=== PATIENT | male | born 1960 | race Caucasian/White ===

== ENCOUNTER 2016-10-07 05:34 | Inpatient (IN) ==
--- NOTE | 2016-10-01 15:24 | EKG Report ---
Stationary ECG Study [facility] Test Date: 10/01/2016 3:20:38 PM Pat Name: JULIO DIAZ Department: Room: Gender: M Asset Management Analyst: JACEY VENTURA : 1960 Requested by: Major Germain Order Number: [id number] Reading MD: IGOR ANDERSON Intervals [place] Rate: 58 P: 54 TN: 222 QRS: -31 QRSD: 83 T: -9 QT: 390 QTc: 387 Interpretive Statements SINUS RHYTHM WITH PROLONGED TN INTERVAL LEFT AXIS DEVIATION Electronically Signed On 10-01-16 17:09:17 CDT by IGOR ANDERSON [email or web address]
[2016-10-01 15:40] LABS: Basophils % 0.5 % (0.0-0.8); Eosinophils # 0.1 10*3/uL (0.0-0.87); Eosinophils % 1.1 % (0.00-10.9); Hematocrit 36.9 VOL% (42.0-52.0); Hemoglobin 12.7 GM/DL (14.0-18.0); Immature Granulocytes % 0.4 %; Immature Granulocytes Absolute 0.02 #; Lymphocytes # 1.6 10*3/uL (1.4-4.0); Lymphocytes % 28.3 % (21.2-54.2); Mean Corpuscular HGB Conc 34.4 GM/DL (32-36); Mean Corpuscular Hemoglobin 31 PG (27-34); Mean Corpuscular Volume 91.3 FL (87-102); Mean Platelet Volume 8.5 FL (9.6-12.0); Monocytes # 0.6 10*3/uL (0.11-0.8); Monocytes % 10.6 % (1.7-12.7); Neutrophils # 3.2 10*3/uL (1.4-7.4); Neutrophils % 59.1 % (38.7-73.9); Platelet Count 216 T/CUMM (130-400); Red Blood Count 4.04 MC/CUMM (3.8-5.5); White Blood Count 5.5 T/CUMM (4-12)
[2016-10-01 15:53] LABS: PT Patient Result 10.5 SECS; Partial Thromboplastin Time 27.7 SECS (0-40)
[2016-10-01 16:07] LABS: Apearance,Urine CLEAR (Clear); Bilirubin,Urine Negative (Negative); Blood, Urine Negative (Negative); Glucose,Urine (UA) Negative (Negative); Ketones,Urine Negative (Negative); Mucus,Urine Occasional /LPF (Occasional); Nitrite,Urine Negative (Negative); Protein,Urine Negative; RBC,Urine <1 /HPF (0-4); Urine Color Yellow (Yellow); Urine Specific Gravity 1.017 (1.001-1.035); Urine Urobilinogen < 2.0 EU/DL (0.2-1.0); WBC,Urine <1 /HPF (0-6)
--- NOTE | 2016-10-01 16:17 | XRay Report ---
XR chest 2V Indication: Preop respiratory evaluation. Chest 2 views: Comparison 04/26/2014. The heart size and mediastinal contour are normal. The lungs and pleural spaces are clear. Bones are unremarkable. Impression: Negative chest. PROCEDURE INTERPRETED AT [facility] DEPARTMENT OF RADIOLOGY Final Report Signed by: Jt Stevenson M.D.
[2016-10-01 16:21] LABS: Albumin 3.7 G/DL (3.4-5.0); Bilirubin,Total 0.4 MG/DL (0.2-1.0); Calcium 8.7 MG/DL (8.5-10.1); Osmolality,Calculated 283.3 MOS/KG (273-304); Total Protein 6.9 G/DL (6.4-8.3)
[2016-10-07] MEDS ORDERED: VANCOMYCIN 1,000 MG VIAL ONE (05:56)
[2016-10-07] MEDS ORDERED: SODIUM CHLORIDE 0.9% 100 ML IV ONE ×2 (05:58→09:03)
[2016-10-07] MEDS ORDERED: ceFAZolin 1,000 MG VIAL ONE (05:58)
[2016-10-07] MEDS ORDERED: VANCOMYCIN INJ 1,000 MG in SODIUM CHLORIDE 0.9% 250 ML IV ONE (06:00)
[2016-10-07] MEDS ORDERED: FAMOTIDINE 20 MG TABLET PO ONE (06:16)
[2016-10-07] MEDS ORDERED: LORazepam 1 MG TABLET PO ONE (06:16)
[2016-10-07] MEDS ORDERED: LORazepam 1 MG TABLET ONE (06:19)
[2016-10-07] MEDS ORDERED: FAMOTIDINE 20 MG TABLET ONE (06:20)
[2016-10-07] MEDS: LACTATED RINGERS 1,000 ML IV SCH ×5 (06:28→20:10)
[2016-10-07] MEDS ORDERED: TRANEXAMIC ACID 1,000 MG/10 ML VIAL IV ONE (06:39)
[2016-10-07] MEDS ORDERED: NEOMYCIN/POLYMYXIN/BACITRACIN OINT 28.4 GM TUBE TOP ONE (06:40)
--- NOTE | 2016-10-07 06:59 | History and Physical Update ---
History and Physical Update - History and Physical H&P was reviewed, the patient examined and there: are no changes in the patients condition since last H&P was completed.
[2016-10-07] MEDS ORDERED: PROPOFOL 500 MG/50 ML BOTTLE IV ONE (07:02)
[2016-10-07] MEDS ORDERED: PHENYLEPHRINE 1 MG/10 ML SYRINGE IV ONE (07:02)
[2016-10-07] MEDS ORDERED: MORPHINE 2 MG/1 ML SYRINGE IV PRN ×2 (07:28)
[2016-10-07] MEDS ORDERED: diphenhydrAMINE CAP 25 MG CAPSULE PO PRN (07:28)
[2016-10-07] MEDS ORDERED: ONDANSETRON 4 MG/2 ML VIAL IV PRN (07:28)
[2016-10-07] MEDS ORDERED: ZALEPLON 5 MG CAPSULE PO PRN (07:28)
[2016-10-07] MEDS ORDERED: oxyCODONE IR 5 MG TABLET PO PRN (07:28)
--- NOTE | 2016-10-07 09:01 | Operative Note ---
Procedure: DIAGNOSIS: Left hip primary osteoarthritis PROCEDURE: Left total hip arthroplasty (CPT#03878) SURGEON: Zia ASST: Basilio Giraldo ANESTHESIA: Spinal PROCEDURE and FINDINGS: After adequate anesthesia was induced, the patient was placed in lateral decubitus position. Left lower extremities prepped and draped in usual sterile fashion. Posteriolateral approach to the hip was made. Skin, subcutaneous tissue and deep fascia was incised longitudinally. Gluteus emely muscle belly was split in line with its fibers. Piriformis, external rotators and capsule were taken down as a single layer as an inverted L shaped capsulotomy. Hip was dislocated. Templated femoral neck cut was made. Jolly retractors were placed superiorly and posteriorly. Acetabulum was prepared by sequentially reaming. A 56 mm Continuum acetabular shell was press-fit with excellent stability. 1 6.5 millimeter screw was placed with an excellent bite. 32 mm elevated longevity liner was placed with a dome hole plug. Upon removal of the posterior jolly, the trina broke within the posterior wall. A brief attempt was made to retrieve the time. However, it it broken deep within the posterior wall. I was concerned that removal would destabilize the posterior wall and fit of the acetabular component. Femur was prepared sequentially with the box osteotome, canal finder and sequential broaches to 14. Components were trialed. A size 14 Versys fiber metal tapered stem was press-fit. A 32+3.5 mm head was placed. The component was stable posteriorly and anteriorly. Capsule was repaired with #5 Tycron. Deep fascia was closed with 0 Vicryl wtkyck-bu-expdr suture. Subcutaneous tissue was closed deep with a 2-0 Vicryl runner and superficially with 3-0 interrupted buried sutures. Skin was closed with guillermo. Bacitracin and a sterile occlusive dressing was applied. Surgeon / Physician: Major Lizarraga Jr. Results - Labs CBC & BMP: 10/01/16 15:33 10/01/16 15:33 Discharge Plan - Discharge Medications No Action Simvastatin [Zocor] 10 mg PO BEDTIME Losartan [Cozaar] 100 mg PO DAILY Colchicine [Colcrys] 0.6 mg PO DAILY Hydrocodone/Acetaminophen [[place] 10-325 Tablet] 1 each PO BID PRN PRN Reason: Pain Meloxicam 15 mg PO DAILY - Follow Up or Referral - Forms/Instructions
[2016-10-07] MEDS ORDERED: LACTATED RINGERS 1,000 ML IV ONE (09:03)
[2016-10-07] MEDS ORDERED: MIDAZOLAM 2 MG/2 ML VIAL ONE (09:03)
--- NOTE | 2016-10-07 09:07 | Anesthesia Post-Op ---
Anesthesia Post OP - Post Ansesthetic Evaluation Patient seen in post op: Yes Resp: within normal limits CV: within normal limits Mental: within normal limits Temp: within normal limits Owix-Tj-Lmzwskfug: within normal limits Nausea and Vomiting: within normal limits Pain: within normal limits
[2016-10-07 09:14] LABS: Apearance,Urine Clear (Clear); Bilirubin,Urine Negative (Negative); Blood, Urine NEGATIVE (Negative); Glucose,Urine (UA) Negative (Negative); Ketones,Urine Negative (Negative); Mucus,Urine Occasional /LPF (Occasional); Nitrite,Urine Negative (Negative); Protein,Urine Negative; RBC,Urine 2 /HPF (0-4); Urine Color Straw (Yellow); Urine Specific Gravity 1.015 (1.001-1.035); WBC,Urine <1 /HPF (0-6)
[2016-10-07 09:15] LABS: Urine Urobilinogen 0.2 EU/DL (0.2-1.0)
[2016-10-07] MEDS: ACETAMINOPHEN 500 MG TABLET PO SCH ×3 (10:27→22:07)
[2016-10-07] MEDS: KETOROLAC 30 MG/1 ML VIAL IV SCH ×3 (10:32→22:09)
--- NOTE | 2016-10-07 11:46 | XRay Report ---
History: Postop left hip replacement Date: 10/07/2016 Study: Left hip single view Comparison exam: No previous A single postoperative view of the left hip is submitted. The patient is immediately postop left hip replacement. The left hip prosthesis appears well conjugated in this single view. There is no radiographic evidence of postsurgical complication. Surgical clips are noted over the soft tissues lateral to the hip. There is some postsurgical soft tissue emphysema. Impression: Postop left hip replacement as discussed above PROCEDURE INTERPRETED AT [facility] DEPARTMENT OF RADIOLOGY Final Report Signed by: Dr. Luisa Booth
[2016-10-07] MEDS: LOSARTAN 50 MG TABLET PO SCH (13:50)
[2016-10-07] MEDS ORDERED: MORPHINE 2 MG/1 ML SYRINGE IV ONE (14:29)
--- NOTE | 2016-10-07 14:33 | Orthopedic Progress Note ---
Orthopedics - Subjective Interval history: Complaining of pain. NV ok. Dressing dry. Morphine bolus otherwise continue with orders. Exam - Constitutional Vitals: Period Temp Pulse Resp BP Sys/Hernandez Pulse Ox Last 24 Hr 96.8 F-98.4 F 56-75 16-18 100-159/54-103 99-100 Results - Labs CBC & BMP: 10/01/16 15:33 10/01/16 15:33
[2016-10-07] MEDS: COLCHICINE 0.6 MG TABLET PO SCH (14:59)
[2016-10-07] MEDS: DOCUSATE SODIUM 100 MG CAPSULE PO SCH ×2 (15:03→22:12)
[2016-10-07] MEDS: ceFAZolin 2,000 MG in PREMIX 1 EACH IV SCH ×2 (17:00→23:01)
[2016-10-07] MEDS: SIMVASTATIN 10 MG TABLET PO SCH (22:07)
[2016-10-07] MEDS: oxyCODONE IR 5 MG TABLET PO PRN (22:08)
[2016-10-08] MEDS: ACETAMINOPHEN 500 MG TABLET PO SCH (02:53)
[2016-10-08] MEDS: KETOROLAC 30 MG/1 ML VIAL IV SCH (02:54)
[2016-10-08] MEDS: LACTATED RINGERS 1,000 ML IV SCH ×2 (04:41→06:08)
[2016-10-08 04:50] LABS: Basophils % 0.5 % (0.0-0.8); Eosinophils # 0.1 10*3/uL (0.0-0.87); Eosinophils % 1.6 % (0.00-10.9); Hematocrit 26.8 VOL% (42.0-52.0); Hemoglobin 9.1 GM/DL (14.0-18.0); Immature Granulocytes % 0.2 %; Immature Granulocytes Absolute 0.01 #; Lymphocytes % 22.3 % (21.2-54.2); Mean Corpuscular Hemoglobin 32 PG (27-34); Mean Corpuscular Volume 92.7 FL (87-102); Mean Platelet Volume 9.1 FL (9.6-12.0); Monocytes # 0.5 10*3/uL (0.11-0.8); Monocytes % 12.2 % (1.7-12.7); Neutrophils # 2.8 10*3/uL (1.4-7.4); Neutrophils % 63.2 % (38.7-73.9); Platelet Count 161 T/CUMM (130-400); Red Blood Count 2.89 MC/CUMM (3.8-5.5); Red Cell Distribution Width 11.9 % (9.3-17.3); White Blood Count 4.4 T/CUMM (4-12)
[2016-10-08 05:22] LABS: Calcium 7.6 MG/DL (8.5-10.1); Osmolality,Calculated 279.4 MOS/KG (273-304); Potassium 4.1 MMOL/L (3.5-5.1)
[2016-10-08] MEDS: FONDAPARINUX 2.5 MG/0.5 ML SYRINGE SUBCUT SCH (05:25)
--- NOTE | 2016-10-08 07:58 | Orthopedic Progress Note ---
Orthopedics - Subjective Interval history: Mr. Wiggins is feeling better this morning. Dressing clean, dry and intact. Left lower extremity is neurovascularly unchanged. Plan: Mobilize per protocol. Exam - Constitutional Vitals: Period Temp Pulse Resp BP Sys/Hernandez Pulse Ox Last 24 Hr 96.8 F-99.2 F 56-91 16-20 94-132/51-83 93-100 Results - Labs CBC & BMP: 10/08/16 04:08 10/08/16 04:08
[2016-10-08] MEDS: CELECOXIB 200 MG CAPSULE PO SCH (08:45)
[2016-10-08] MEDS: DOCUSATE SODIUM 100 MG CAPSULE PO SCH ×2 (08:45→20:58)
[2016-10-08] MEDS: COLCHICINE 0.6 MG TABLET PO SCH (08:46)
[2016-10-08] MEDS: oxyCODONE IR 5 MG TABLET PO PRN (09:28)
[2016-10-08] MEDS: LOSARTAN 50 MG TABLET PO SCH (12:23)
--- NOTE | 2016-10-08 14:19 | Pathology Report from [facility] ---
[facility] [place] ACCESSION # : [id number] PATIENT NAME : Neo Wiggins ORDERING DR : ALMA DELIA VENTURA MD CLINICAL HX: LT hip osteoarthritis POST-OP DX: Same SPECIMEN INFO: LT hip bone & tissue GROSS DESCRIPTION: The specimen is received in formalin labeled NEO WIGGINS/ LEFT HIP BONE/TISSUE consists of a femoral head measuring 5.5 x 5.3 x 5.7 cm. The articular surface is focally degenerative with large area of subchondral eburnation seen measuring 4.8 x 3.2 cm. The surgical margin is smooth with some softening appreciated. Received separately in specimen container are multiple fragments of hemorrhagic bone and soft tissue measuring 11.0 x 4.5 cm in aggregate. Electrical Designer Drafter tissue submitted in one cassette following decalcification. DIAGNOSIS FOR NEO WIGGINS: LEFT HIP BONE & TISSUE: Gross and microscopic findings consistent with osteoarthritis. Trabecular bone and normocellular bone marrow without evidence of neoplasia. COLLECTED DATE: 10/07/[address] [facility] [place] REPORT DATE: 10/08/2016 ELECTRONICALLY SIGNED BY: Kenny Fischer III, M.D. 10/08/2016 - 9:52:00 VANESSA
[2016-10-08] MEDS: SIMVASTATIN 10 MG TABLET PO SCH (20:59)
[2016-10-09 05:49] LABS: Basophils % 0.5 % (0.0-0.8); Eosinophils # 0.1 10*3/uL (0.0-0.87); Eosinophils % 1.5 % (0.00-10.9); Hematocrit 26.6 VOL% (42.0-52.0); Hemoglobin 8.8 GM/DL (14.0-18.0); Immature Granulocytes % 0.5 %; Immature Granulocytes Absolute 0.03 #; Lymphocytes # 1.3 10*3/uL (1.4-4.0); Lymphocytes % 21.7 % (21.2-54.2); Mean Corpuscular HGB Conc 33.1 GM/DL (32-36); Mean Corpuscular Hemoglobin 31 PG (27-34); Mean Corpuscular Volume 92.4 FL (87-102); Mean Platelet Volume 8.7 FL (9.6-12.0); Monocytes # 0.7 10*3/uL (0.11-0.8); Monocytes % 11.9 % (1.7-12.7); Neutrophils # 3.8 10*3/uL (1.4-7.4); Neutrophils % 63.9 % (38.7-73.9); Platelet Count 154 T/CUMM (130-400); Red Blood Count 2.88 MC/CUMM (3.8-5.5); Red Cell Distribution Width 11.9 % (9.3-17.3)
[2016-10-09] MEDS: FONDAPARINUX 2.5 MG/0.5 ML SYRINGE SUBCUT SCH (06:00)
[2016-10-09 06:43] LABS: Eosinophils 3 % (0-10); Giant Platelets Few; Hypochromasia 1+; Lymphocytes 20 % (20-55); Ovalocytes Slight; Platelet Estimate Normal; Segmented Neutrophils 68 % (50-85); Total Cells Counted 100
--- NOTE | 2016-10-09 08:16 | Orthopedic Progress Note ---
Orthopedics - Subjective Interval history: Mr. Wiggins is complaining of pain today. He is complaining of pain getting in and out of the bed and chair. He states he feels better ambulating. He has been able to ambulate in the clarke. Left lower extremity is neurovascularly unchanged. He sitting upright comfortably. Impression: Postoperative day #2 status post left total hip arthroplasty Plan: Continue with physical therapy today. Plan discharge home tomorrow with outpatient physical therapy. Discharge instructions were reviewed. Exam - Constitutional Vitals: Period Temp Pulse Resp BP Sys/Hernandez Pulse Ox Last 24 Hr 97.5 F-99.5 F 76-90 18-18 90-113/55-72 95-99 Results - Labs CBC & BMP: 10/09/16 05:39 10/08/16 04:08 Specialty Discharge - Follow Up or Referrals Follow up with: Major Lizarraga Jr., MD [Physician] - 10/21/16 1:00 pm
--- NOTE | 2016-10-09 08:19 | Discharge Summary ---
<Major Lizarraga Jr. - Last Filed: 10/09/16 08:16> Hospital Course - Hospital Course Hospital Course: Mr. Wiggins was admitted after undergoing a left total hip arthroplasty. He received perioperative DVT and antimicrobial prophylaxis. Received physical therapy. He was discharged home in stable condition with outpatient physical therapy. Specialty Discharge - Follow Up or Referrals Follow up with: Major Lizarraga Jr., MD [Physician] - 10/21/16 1:00 pm Discharge Plan - Discharge Data Disposition: Disch To Home/Self Care Condition at Discharge: Stable Discharge Diet: advance to your usual diet Hygiene: may shower Weight Bearing at Discharge: weight bear as tolerated Driving: not until seen by doctor - Discharge Medications Continue Simvastatin [Zocor] 10 mg PO BEDTIME Losartan [Cozaar] 100 mg PO DAILY Colchicine [Colcrys] 0.6 mg PO DAILY Meloxicam 15 mg PO DAILY Discontinued Hydrocodone/Acetaminophen [Carter 10-325 Tablet] 1 each PO BID PRN PRN Reason: Pain - Follow Up or Referral Follow Up: Major Lizarraga Jr., MD [Physician] - 10/21/16 1:00 pm - Forms/Instructions Additional Discharge Instructions: Posterior hip precautions for 3 months. Daily dry dressing changes. Arrange for walker and bedside commode for home use. Wear BLAINE hose for 1 month. Follow-up appointment in 10-14 days. Prescription for Carter 10 was written. Take aspirin 325 mg by mouth daily for 3 weeks. Set up outpatient physical therapy. Exam - Constitutional Vitals: Period Temp Pulse Resp BP Sys/Hernandez Pulse Ox Last 24 Hr 97.8 F-98.8 F 68-101 18-20 88-114/52-65 94-97 DS: Provider Date of admission: 10/07/16 07:28 Primary care physician: . No PCP Attending physician on admission: Major Lizarraga Jr., Consults: 10/07/16 07:28 Consult to Case Mgmt/Social Srvs [CONS] Routine Reason for Case Mgmt/Social Srvs: Rehab Home Health Equipment Consult Comment: Bedside Commode, Deliver to rm 320 before D/C home; Pt 6ft 209 lbs Consult to Occupational Therapy [CONS] Routine Reason for Occupational Therapy: Evaluate and Treat Consult Comment: ADL's Consult to Physical Therapy [CONS] Routine Reason for Physical Therapy: Evaluate and Treat Gait Training 10/08/16 15:26 Consult to Physical Therapy [CONS] Routine Reason for Physical Therapy: Other Consult Comment: Deliver Standard Walker to before D/C home for home rehab. Discharging clinician: Major Lizarraga Jr., Expected date of discharge: 10/10/16 <Andre Patel - Last Filed: 10/10/16 09:22> Diagnosis - Discharge Diagnosis (1) History of hip replacement Status: Acute (2) Constipation Status: Acute
[2016-10-09] MEDS: CELECOXIB 200 MG CAPSULE PO SCH (10:07)
[2016-10-09] MEDS: COLCHICINE 0.6 MG TABLET PO SCH (10:07)
[2016-10-09] MEDS: DOCUSATE SODIUM 100 MG CAPSULE PO SCH ×2 (10:07→20:38)
[2016-10-09] MEDS: LOSARTAN 50 MG TABLET PO SCH (12:51)
[2016-10-09] MEDS: MAGNESIUM HYDROXIDE SUSP 30 ML UDCUP PO PRN ×2 (15:11→22:54)
[2016-10-09] MEDS: SIMVASTATIN 10 MG TABLET PO SCH (20:38)
[2016-10-10] MEDS: FONDAPARINUX 2.5 MG/0.5 ML SYRINGE SUBCUT SCH (06:02)
[2016-10-10] MEDS: MAGNESIUM HYDROXIDE SUSP 30 ML UDCUP PO PRN ×2 (06:04→12:23)
[2016-10-10] MEDS ORDERED: BISACODYL 10 MG SUPP RECTAL ONE ×2 (09:19→09:58)
--- NOTE | 2016-10-10 09:21 | Orthopedic Progress Note ---
Assessment and Plan (1) History of hip replacement Status: Acute Assessment and plan: Cont care: PT, pain control, dvt prophy, d/c planning to home for when patient is ready Current Visit: Yes (2) Constipation Status: Acute Assessment and plan: suppository added. ok to d/c to home when patient ready Current Visit: Yes Orthopedics - Subjective Interval history: pt s/e, denies hip pain, ambulating well. complains of constipation not alleviated with current stool softeners, asking for a suppository Exam - Constitutional Vitals: Period Temp Pulse Resp BP Sys/Hernandez Pulse Ox Last 24 Hr 97.8 F-98.8 F 68-101 18-20 88-114/52-65 94-97 General appearance: no acute distress - Extremities Exam Extremities exam: Present: normal inspection (LLE: dressing c/d/i, comp soft, sensation intact, pulses 2+, calf soft, full arom foot/ankle) Results - Labs CBC & BMP: 10/09/16 05:39 10/08/16 04:08 Lab Results: I have reviewed the past 24 hour labs - Diagnostic Findings Procedure: X-ray: image reviewed by me, report reviewed by me Specialty Discharge - Follow Up or Referrals Follow up with: Major Lizarraga Jr., MD [Physician] - 10/21/16 1:00 pm
[2016-10-10] MEDS: CELECOXIB 200 MG CAPSULE PO SCH (09:39)
[2016-10-10] MEDS: DOCUSATE SODIUM 100 MG CAPSULE PO SCH (09:40)
[2016-10-10] MEDS: COLCHICINE 0.6 MG TABLET PO SCH (09:40)
[2016-10-10] MEDS: LOSARTAN 50 MG TABLET PO SCH (09:44)
[2016-10-10 11:41] VITALS: BP 114/82
== END 2016-10-10 14:20 | disposition home or self-care (01) | DRG 470 ==
LOC: N.SDSINP 05:34 → N.3E 09:50
PROVIDERS: ADMIT Orthopaedic Surgery; ATTEND Orthopaedic Surgery